=== PATIENT | male | born 1960 | race Caucasian/White ===

== ENCOUNTER 2018-12-24 14:38 | Emergency (ER) | payer OTHER, SELFPAY ==
[2018-12-24 14:39] VITALS: BP 146/91; PULSE 96; RESP 16; TEMP 36.7; O2SAT 99; BMI 28.8
[2018-12-24 14:56] VITALS: BP 154/99; PULSE 88; RESP 11; O2SAT 99
--- NOTE | 2018-12-24 15:07 | EKG12_ITS ---
Test Reason : CP Blood Pressure : / mmHG Vent. Rate : 088 BPM Atrial Rate : 088 BPM P-R Int : 156 ms QRS Dur : 092 ms QT Int : 356 ms P-R-T Axes : 048 -09 043 degrees QTc Int : 430 ms Normal sinus rhythm Minimal voltage criteria for LVH, may be normal variant Borderline ECG Confirmed by NUNO HUERTA, JULY ([id number]), rewrite editor GERARDO LAWLER ([id number]) on 12/26/2018 11:36:37 AM Referred By: BEV/JEFFREY Confirmed By:JULY REINA MD
--- NOTE | 2018-12-24 15:08 | RAD_ITS ---
STUDY: X-RAY CHEST REASON FOR EXAM: Male, 58 years old. One week history of left-sided chest pain. TECHNIQUE: Single AP portable view of the chest. COMPARISON: Comparison is made with prior study dated September 16, 2014. FINDINGS: EKG electrodes are seen. The lungs are clear and expanded. There is no demonstrated pleural abnormality. Normal size heart. Normal mediastinum and malgorzata. Normal visualized pulmonary arteries. Normal visualized aortic arch and descending thoracic aorta. Normal visualized thoracic spine. Normal visualized ribs, clavicles, and shoulders. There is no demonstrated abnormality of the visualized soft tissue structures of the upper abdomen. RAD/Chest 1 View (Portable) IMPRESSION: Normal x-ray examination of the chest. Electronically Signed: Catalino Krishnan, at 15:33 EDT , Service support ,
--- NOTE | 2018-12-24 15:08 | ED.VIS.GEN ---
History of Present Illness Chief Complaint: Chest Pain Detail of Chief Complaint: Intermittent chest pain Informant: Patient, Family Onset: - - 1 week Context: Gradual Onset Timing: Intermittent Current Severity: Mild Maximum Severity: Moderate Narrative: Patient presents with intermittent chest tightness in the left upper chest. When this pain occurs he also gets some tingling in the left forearm. He denies neck pain. He states yesterday he had pain in the left shoulder blade area. He notes that with exercise such as running on the treadmill the pain resolves. Past history is significant for secondary polycythemia vera and he gets regular phlebotomy. He had a stress test in 2014 that was normal. - Past Medical History (1) Polycythemia Status: Acute (2) Hyperlipidemia Status: Chronic Past Medical History - Allergies and Home Meds Allergies/Adverse Reactions: Allergies cephalexin monohydrate [From Keflex] Allergy (Verified 12/24/18 14:39) Tony Primary Care Physician: [facility] Doctor,Out of [NON-STAFF] - Prior records reviewed: Yes Past Medical History: - - Reviewed Surgical History: - - Facetectomy Smoking Status: Never smoker - Family History Maternal Family History: Reports: Heart Disease - His mother had a myocardial infarction at the age of 53 Paternal Family History: Reports: - - His father in his early 60s of metastatic cancer with an unknown primary Sibling Family History: Reports: Heart Disease - His brother who is 1 year old are then he has has had a coronary stent Review of Systems General: Denies: Chills, Fever Cardiovascular: Reports: Chest pain. Denies: Palpitations, Heart racing Respiratory: Denies: Dyspnea, Cough Gastrointestinal: Denies: Abdominal pain, Nausea, Vomiting, Diarrhea Musculoskeletal: Reports: Back pain Neurological: Reports: Parasthesia, - - Intermittent tingling to left forearm Physical Exam Vital Signs/Narrative: Vital Signs Temp Pulse Resp BP Pulse Ox 12/24/18 14:56 88 11 L 154/99 H 99 12/24/18 14:39 98.1 F 96 16 146/91 H 99 General: Well nourished, Well developed ENT: Moist mucous membranes Cardiovascular: Regular rate, Regular rhythm, No murmurs Respiratory: No distress, CTA bilaterally, Chest nontender Abdomen: Soft, Nontender Back: Nontender Extremities: Nontender, No edema, - - Strong distal pulses noted throughout. Skin: Normal color, No rash Neurological: Alert, Oriented x3 Psychological: Normal affect Diagnostic/Tx/Re-eval Clinical Impression(s) from Imaging Studies Chest X-Ray 12/24/18 15:08 IMPRESSION: Normal x-ray examination of the chest. Electronically Signed: Catalino Krishnan, at 15:33 EDT , Service support , Laboratory Tests 12/24/18 12/24/18 12/24/18 Range/Units 14:50 14:50 14:50 WBC 8.5 (4.4-11.0) K/mm3 RBC 6.14 (4.6-6.2) M/mm3 Hgb 14.7 (13.0-16.5) g/dl Hct 46.8 (40-54) % MCV 76.2 L (80-94) fL MCH 23.9 L (27.0-32.0) pg MCHC 31.4 L (32-36) g/gl RDW 18.2 H (11.6-14.6) % RDW Differential 49.0 H (35.1-43.9) fl Plt Count 266 (150-450) K/mm3 MPV 12.5 H (6.2-12.0) fl Immature Gran % (Auto) 0.400 (0.0-0.9) % Neut % (Auto) 77.4 H (47-70) % Lymph % (Auto) 13.5 L (19-41) % Ritchie % (Auto) 8.0 (0-10) % Eos % (Auto) 0.5 (0-5) % Baso % (Auto) 0.2 (0-1) % Absolute Neuts (auto) 6.6 (2.0-7.7) X10^3/uL Absolute Lymphs (auto) 1.14 (0.83-4.51) X10^3/ul Total Counted Not Reportable D-Dimer Quant (PE/DVT) < 0.27 L (0.27-0.49) FEU/ug/m Sodium 140 (136-145) mmol/L Potassium 3.5 (3.5-5.1) mmol/L Chloride 106 (98-107) mmol/L Carbon Dioxide 27.0 (21.0-32.0) mmol/L Anion Gap 7 (5-15) BUN 17 (7-18) mg/dL Creatinine 1.04 (0.70-1.30) mg/dL Estim Creat Clear Calc 76.73 ml/min Est GFR (MDRD) Af Amer 95 (>60) mL/min Est GFR (MDRD) Non-Af 79 (>60) mL/min BUN/Creatinine Ratio 16.3 (10-20) RATIO Glucose 151 H (74-106) mg/dL Calcium 9.3 (8.5-10.1) mg/dL Troponin I < 0.015 (<0.045) ng/mL - EKG Initial EKG Interpretation: Sinus Rhythm, - - Normal sinus rhythm [address] change. - Medical Decision Making Test results were discussed with patient and at bedside. He states that he had vacation for for 5 days over December 13 and states he had no pain at all at that time. He started to think it may be more stress related. He did have a stress test 4 years ago that was unremarkable and his symptoms get better with exertion as opposed to worse. Patient will call his primary care physician for follow-up. If he worsens in any way he is to return immediately for repeat evaluation. He and voiced their understanding and agreement. ED Disposition - Plan for ED Patient: Disposition: Home or Assisted Living Diagnosis: Chest pain Instructions: CHEST PAIN, Uncertain Cause Referrals: [facility] Doctor,Out of [NON-STAFF] - Additional Instructions: Follow-up with your PCP as discussed. Return for any worsening symptoms or concerns.
[2018-12-24 15:17] VITALS: O2SAT 95
[2018-12-24] MEDS: Aspirin 81 MG TAB.CHEW 324 MG PO (15:21)
[2018-12-24] MEDS: 0.9% Normal Saline 1,000 ML 150 ML IV (15:21)
[2018-12-24 15:30] LABS: Absolute Lymphocyte Count 1.14 X10^3/ul (0.83-4.51); Absolute Neutrophil Count 6.6 X10^3/uL (2.0-7.7); Basophil# 0.02 X10^3/uL; Basophil% 0.2 % (0-1); Eosinophil# 0.04 X10^3/uL; Eosinophils% 0.5 % (0-5); Hematocrit 46.8 % (40-54); Hemoglobin 14.7 g/dl (13.0-16.5); Lymphocyte # 1.14 X10^3/ul (4.0); Lymphocyte % 13.5 % (19-41); Mean Corp Hgb Conc 31.4 g/gl (32-36); Mean Corpuscular Hgb 23.9 pg (27.0-32.0); Mean Corpuscular Volume 76.2 fL (80-94); Mean Platelet Vol. 12.5 fl (6.2-12.0); Monocyte# 0.68 X10^3/uL; Neutrophil # 6.56 X10^3/uL (2.7-7.7); Neutrophil % 77.4 % (47-70); Platelet Count 266 K/mm3 (150-450); RBC Distribution Width CV 18.2 % (11.6-14.6); Red Blood Count 6.14 M/mm3 (4.6-6.2); White Blood Count 8.5 K/mm3 (4.4-11.0)
[2018-12-24 15:43] LABS: POSITIVE COUNT NO; POSITIVE DIFFERENTIAL NO; POSITIVE MORPHOLOGY NO
[2018-12-24 15:46] LABS: Anion Gap 7 (5-15); BUN 17 mg/dL (7-18); BUN/Creat Ratio 16.3 RATIO (10-20); Calcium,Total 9.3 mg/dL (8.5-10.1); Chloride 106 mmol/L (98-107); Creatinine, Serum 1.04 mg/dL (0.70-1.30); EST Glomerular Filtration Rate 79 mL/min (>60); Est Glom Filt Rate - Afr Amer 95 mL/min (>60); Estimated Creatinine Clearance 76.73 ml/min; Glucose 151 mg/dL (74-106); Potassium 3.5 mmol/L (3.5-5.1); Sodium Level 140 mmol/L (136-145)
[2018-12-24 16:17] LABS: D-Dimer Quantitative (DVT/PE) < 0.27 FEU/ug/m (0.27-0.49)
[2018-12-24 16:26] VITALS: BP 122/83; PULSE 75; RESP 18; O2SAT 99
== END 2018-12-24 16:30 | disposition home or self-care (01) ==
PROVIDERS: Emergency Provider Emergency Medicine
DX: R07.89 Other chest pain (principal); D45 Polycythemia vera; R20.2 Paresthesia of skin; E78.5 Hyperlipidemia, unspecified; M54.9 Dorsalgia, unspecified; Z79.899 Other long term (current) drug therapy; Z88.1 Allergy status to other antibiotic agents
CPT/HCPCS: 71045; 80048; 84484; 85025; 85379; 93005; 96360; 99284; J7030; A4216

== ENCOUNTER 2023-09-21 08:31 | Emergency (ER) | payer OTHER, SELFPAY ==
[2023-09-21 08:31] VITALS: BP 159/75; BP 174/86; PULSE 106; PULSE 99; RESP 16; RESP 18; TEMP 36.6; O2SAT 96; BMI 29.9
--- NOTE | 2023-09-21 08:45 | EKG12_ITS ---
Test Reason : CP Blood Pressure : / mmHG Vent. Rate : 105 BPM Atrial Rate : 105 BPM P-R Int : 190 ms QRS Dur : 100 ms QT Int : 344 ms P-R-T Axes : 072 -13 063 degrees QTc Int : 454 ms Sinus tachycardia Otherwise normal ECG Confirmed by Eliud William ([id number]), editor farm journal ZIYAD VILLEGAS ([id number]) on 09/22/2023 10:59:49 AM Referred By: CONNIE Confirmed By:Eliud William
--- NOTE | 2023-09-21 08:47 | ED.VIS.CHEST ---
HPI History of Present Illness Chief Complaint: Chest Pain Informant: patient Narrative Narrative: 62-year-old male with no prior history of heart disease that he knows of presenting out of concern for episodes of chest discomfort that have lasted between 5 and 10 minutes each. The last episode was this morning and involves some tingling in his left arm, he states all of that is gone right now. He has been doing physical therapy for his shoulder for weeks, he thinks his shoulder is getting better. He states the discomfort is usually sort of a nonpleuritic pressure on the left side of his chest and sometimes he pushes on his ribs nearby and it makes it hurt worse, feeling like it is bruised. That is not there right now either. He denies any palpitations, dyspnea, diaphoresis, nausea or vomiting, or radiation elsewhere during these other episodes. He states this morning, he had a jolt of caffeine after downing a cup of Americano. CVD Risk Factors: Positive for Hypercholesterolemia and Family History 1' </=55; Negative for Hypertension, Diabetes or Smoking [facility] Medical History (Updated 09/21/23 @ 12:[address] Rahul Walton MD) Hyperlipidemia Overweight (BMI 25.0-29.9) Polycythemia Home Medications atorvastatin 10 mg tablet 20 mg PO DAILY 09/16/14 [History Last Taken 09/16/14] aspirin 81 mg chewable tablet 81 mg PO DAILY@0800 09/17/14 [Rx Last Taken Unknown] cetirizine 10 mg capsule 10 mg PO PRN PRN Allergies 12/24/18 [History Last Taken Unknown] fluticasone propionate 50 mcg/actuation nasal spray,suspension 2 spray NASAL PRN PRN Not Specified 12/24/18 [History Last Taken Unknown] lisinopril 10 mg-hydrochlorothiazide 12.5 mg tablet 1 tab PO DAILY 12/24/18 [History Last Taken Unknown] Allergy/AdvReac Type Severity Reaction Status Date / Time cephalexin monohydrate Allergy Hives Verified 09/21/23 08:32 [From [place] [facility]] Social History Smoking Status: Never smoker ROS ROS ED Constitutional Constitutional ED: Denies chills or fever(s) Eyes Eyes: Denies change in vision or diplopia ENT ENT ED: Denies rhinorrhea or sore throat Cardiovascular Cardiovascular: Reports as per HPI, chest pain and radiating jaw, neck or arm pain; Denies leg edema, palpitations or syncope Respiratory/Chest Respiratory/Chest: Denies cough or dyspnea Gastrointestinal Gastrointestinal: Denies abdominal pain, diarrhea, nausea or vomiting Genitourinary Genitourinary ED: Denies dysuria or hematuria Musculoskeletal Musculoskeletal: Denies back pain or neck pain Integumentary Denies abscess or rash Neurologic Neurologic: Denies headache(s), paresthesias or weakness Psychiatric Psychiatric: Denies suicidal ideation or suicidal thoughts EXAM Physical Exam Const Vital Signs: 09/21/23 08:31 09/21/23 08:31 09/21/23 08:50 Temperature 98 F Temperature Source Temporal Pulse Rate 106 H 99 Respiratory Rate 18 16 Respiratory Effort Blood Pressure 174/86 H 159/75 H Blood Pressure Mean 115 103 Pulse Ox 96 96 100 Oxygen Delivery Method Room Air Room Air Room Air 09/21/23 08:51 09/21/23 10:31 09/21/23 11:44 Temperature Temperature Source Pulse Rate 62 62 Respiratory Rate 22 H 22 H Respiratory Effort Normal Non-Labored Blood Pressure 136/69 H 131/69 H Blood Pressure Mean 91 87 Pulse Ox 96 94 Oxygen Delivery Method Room Air 09/21/23 12:00 Temperature Temperature Source Pulse Rate 61 Respiratory Rate 21 H Respiratory Effort Blood Pressure 137/73 H Blood Pressure Mean 91 Pulse Ox 97 Oxygen Delivery Method Positive well nourished and well developed General Appearance ED: well developed and NAD HEENT Reports moist mucous membranes normocephalic and atraumatic Eyes PERRL and EOMs intact bilaterally Neck full ROM and supple Resp normal respiratory effort and clear to auscultation bilaterally Cardio regular rate, regular rhythm and no murmurs GI non-tender and non-distended Auscultation: normoactive bowel sounds Palpation: soft Back/Spine no CVA tenderness General Back: other FROM Extremity normal to inspection General Extremety ED: Negative for edema, pulses abnormal or tenderness General Extremity: Negative for edema or pulses abnormal Neuro oriented x3, CN's II-XII intact bilaterally and no sensory deficits noted Sensorium / Orientation: awake and alert Motor Exam: strength 5/5 throughout Skin no rashes or lesions noted and no wounds Heart Score History: Slightly/Non-Suspicious ECG: Normal Age: >45 - <65 years Risk Factors: 1 or 2 Risk Factors Score: 2 MDM MDM MDM Narrative Medical decision making narrative: Cardiac workup obtained, I do not think he needs to be workup for pulmonary embolus. His EKG is unremarkable, his initial troponin is 7 his 2-hour troponin is 10 for a delta of only 3 with very low measurements, he is ambulatory around the emergency department without any chest discomfort or other symptoms. Furthermore, patient states that he was on the treadmill in the past couple days, and he has no symptoms when running on the treadmill. Given all of this, his heart score is low and I think he can safely be discharged to follow-up as an outpatient. He is amenable to that. Chest x-ray 2 view on my interpretation is normal, radiology was in agreement. Patient comfortable with that plan. Lab Data Attestation: I reviewed the patient's lab results. Labs: Laboratory Results - last 24 hr 09/21/23 09/21/23 08:49 11:27 WBC 6.6 RBC 5.70 Hgb 15.8 Hct 50.1 MCV 87.9 MCH 27.7 MCHC 31.5 L RDW Std Deviation 48.2 H RDW Coeff of Yesica 15.1 H Plt Count 180 MPV 12.0 Immature Gran % (Auto) 0.500 Neut % (Auto) 70.5 H Lymph % (Auto) 19.8 Chaves % (Auto) 7.2 Eos % (Auto) 1.5 Baso % (Auto) 0.5 Absolute Neuts (auto) 4.6 Absolute Lymphs (auto) 1.30 Nucleated RBC % 0 Sodium 139 Potassium 3.8 Chloride 110 H Carbon Dioxide 25.0 Anion Gap 4 L BUN 15 Creatinine 1.02 Estim Creat Clear Calc 83.62 Est GFR (MDRD) Af Amer 96 Est GFR (MDRD) Non-Af 79 BUN/Creatinine Ratio 14.7 Glucose 143 H Calcium 9.2 Troponin I High Sens 7 10 Radiography Diagnostic Testing: Clinical Impression(s) from Imaging Studies Chest X-Ray 09/21/23 09:00 IMPRESSION: Normal x-ray examination of the chest. Electronically Signed: Catalino Krishnan MD at 9:38 EDT , Rhythm Strip Rhythm Strip: Sinus Tach Rate: 103 Ectopy: None EKG Initial EKG: Attestation: I personally reviewed and interpreted this EKG as follows: Interpretation: No Acute Injury Pattern and Sinus Tachycardia (Otherwise normal EKG) Prior EKG tracings: available for review Prior: Unchanged Discharge Plan Triage Chief Complaint: Chest Pain ED Provider: Rahul Walton Dx/Rx/DC Orders Clinical Impression: Chest pain Instructions: ED Chest Pain, Uncertain Cause Prescriptions: No Action atorvastatin 10 MG tablet 20 mg PO DAILY Patient Comments: lower cholesterol aspirin 81 MG tablet,chewable 81 mg PO DAILY@0800 0RF Patient Comments: heart health lisinopril-hydrochlorothiazide 10-12.5 tablet 1 tab PO DAILY fluticasone propionate 1 SPRAY spray,suspension 2 spray NASAL PRN PRN (Reason: Not Specified) cetirizine 10 MG capsule 10 mg PO PRN PRN (Reason: Allergies) Primary Care Provider: Jose Maria Reeder Referrals: Jose Maria Reeder DO [Primary Care Provider] - 1-2 Weeks Disposition Disposition: Home, Self Care
[2023-09-21 08:50] VITALS: O2SAT 100
[2023-09-21 08:59] LABS: Absolute Neutrophil Count 4.6 X10^3/uL (2.0-7.7); Basophil# 0.03 X10^3/uL; Basophil% 0.5 % (0-1); Eosinophils% 1.5 % (0-5); Hematocrit 50.1 % (40-54); Hemoglobin 15.8 g/dL (13.0-16.5); Lymphocyte % 19.8 % (19-41); Mean Corp Hgb Conc 31.5 g/dL (32-36); Mean Corpuscular Hgb 27.7 pg (27.0-32.0); Mean Corpuscular Volume 87.9 fL (80-94); Monocyte# 0.47 X10^3/uL; Monocyte% 7.2 % (0-10); NRBC Flagged by Analyzer 0 % (0-5); Neutrophil # 4.64 X10^3/uL (2.7-7.7); Neutrophil % 70.5 % (47-70); Platelet Count 180 K/mm3 (150-450); RBC Distribution Width CV 15.1 % (11.6-14.6); RBC Distribution Width SD 48.2 fl (35.1-43.9); White Blood Count 6.6 K/mm3 (4.4-11.0)
--- NOTE | 2023-09-21 09:00 | RAD_ITS ---
STUDY: X-RAY CHEST REASON FOR EXAM: Male, 62 years old. Chest pain TECHNIQUE: PA and lateral views of the chest. COMPARISON: Comparison is made with prior study December 24, 2018. FINDINGS: EKG electrodes are seen. The lungs are clear and expanded. There is no demonstrated pleural abnormality. Normal size heart. Normal mediastinum and malgorzata. Normal visualized pulmonary arteries. Normal visualized aortic arch and descending thoracic aorta. Normal visualized thoracic spine. Normal visualized ribs, clavicles, and shoulders. There is no demonstrated abnormality of the visualized soft tissue structures of the upper abdomen. RAD/Chest PA and Lateral IMPRESSION: Normal x-ray examination of the chest. Electronically Signed: Catalino Krishnan MD at 9:38 EDT ,
[2023-09-21 09:20] LABS: Anion Gap 4 (5-15); BUN 15 mg/dL (7-18); BUN/Creat Ratio 14.7 RATIO (10-20); Calcium,Total 9.2 mg/dL (8.5-10.1); Chloride 110 mmol/L (98-107); Creatinine, Serum 1.02 mg/dL (0.70-1.30); EST Glomerular Filtration Rate 79 mL/min (>60); Est Glom Filt Rate - Afr Amer 96 mL/min (>60); Estimated Creatinine Clearance 83.62 ml/min; Glucose 143 mg/dL (74-106); Potassium 3.8 mmol/L (3.5-5.1); Sodium Level 139 mmol/L (136-145); Troponin-I HS (w/2H Reflex) 7 pg/mL (3.0-78.0)
[2023-09-21 10:31] VITALS: BP 136/69; PULSE 62; RESP 22; O2SAT 96
[2023-09-21 10:54] LABS: Reflex Troponin-HS? (from REC) Y
[2023-09-21 11:44] VITALS: BP 131/69; PULSE 62; RESP 22; O2SAT 94
[2023-09-21 11:59] LABS: Troponin-I HS 10 pg/mL (3.0-78.0)
[2023-09-21 12:00] VITALS: BP 137/73; PULSE 61; RESP 21; O2SAT 97
[2023-09-21 12:58] VITALS: BP 150/67; PULSE 71; RESP 16; TEMP 36.6; O2SAT 99
== END 2023-09-21 12:59 | disposition home or self-care (01) ==
PROVIDERS: Emergency Provider Emergency Medicine; PCP Student in an Organized Health Care Education/Training Program; Visit Provider Emergency Medicine
DX: R07.9 Chest pain, unspecified (principal); E78.00 Pure hypercholesterolemia, unspecified; Z79.82 Long term (current) use of aspirin; Z79.899 Other long term (current) drug therapy
CPT/HCPCS: 71046; 80048; 84484; 85025; 93005; 99284; A4216